=== PATIENT | male | born 1945 ===

== ENCOUNTER 2017-11-06 01:14 | Inpatient (IN) | payer OTHER, MEDICARE ==
[~2017-11-06] VITALS: Ht 167.6 cm; Wt 93.0 kg
[~2017-11-06 01:14] MED LIST: COQ10-VIT E 201 EACH PO; CRESTOR10 M1 PO; FLOMAX0.4 M1 PO; VALSARTAN320 M1 PO
--- NOTE | 2017-11-06 13:45 | Admission Core Measures ---
Acute Coronary Syndrome (CM) ACS Core Measures Acute Coronary Syndrome Diagnosis No Congestive Heart Failure (NEW) CHF Core Measures Congestive Heart Failure Diagnosis No Cerebrovascular Accident (NEW) CVA Core Measures CVA/TIA Diagnosis No Venous Thromboembolism VTE Core Cat (View Protocol) VTE Risk Factors Surgery No Mechanical VTE Prophylaxis d/t N/A MechProphylax Ordered No VTE Pharm Prophylaxis d/t NA PharmProphylax ordered Problem List As ranked by this Provider includes Assessment & Plan 1. Unilateral primary osteoarthritis, right knee HOME MEDS Home Med List Rosuvastatin Calcium (Crestor) 10 MG TABLET 10 MG PO DAILY CHOLESTEROL ( Reported) Tamsulosin HCl (Flomax) 0.4 MG CAP.ER.24H 1 TAB PO DAILY BLADDER (Reported) Ubidecarenone/Vitamin E Mixed (Mmo39-Evd E 200 MG-20 Unit Sfg) 200 MG-20 UNIT CAPSULE 1 TAB PO DAILY SUPPLEMENT (Reported) Valsartan 320 MG TABLET 1 TAB PO DAILY BLOOD PRESSURE (Reported)
[2017-11-06] MEDS ORDERED: ASPIRIN EC325 M2 PO (13:49)
[2017-11-06] MEDS ORDERED: MIRALAX17 G1 PO (13:50)
[2017-11-06] MEDS ORDERED: DILAUDID2 M1 PO (13:50)
[2017-11-06] MEDS ORDERED: MS CONTIN15 M3 PO (13:50)
[2017-11-06] MEDS ORDERED: COLACE100 M1 PO (13:50)
[2017-11-06] MEDS ORDERED: PRILOSEC OTC20 M1 PO (13:50)
--- NOTE | 2017-11-06 14:45 | Patient Discharge Instructions ---
Discharge Instructions General Discharge Information You were seen/treated for: Right knee pain related to unilateral primary osteoarthritis You had these procedures: Right total knee replacement Watch for these problems: Increasing pain despite the use of pain medication Increasing redness, warmth or swelling Drainage of any type from incision Inability to bear weight on operative leg Persistent nausea and vomiting Fever greater than 101.5 degrees Do not soak the wound: Yes Daily wet to dry dressings: No No bath, but you may shower: Yes Other wound care: Please keep wound clean and dry. No ointments or lotions of any type on or near incision at any time. No exceptions. Your dressing will be changed by your nurse on the second day after your surgery. Daily dry dressing changes are recommended each day thereafter. Do not soak your wound in a bath at any time until otherwise indicated by your surgeon. You may shower, please dry wound immediately after shower with a clean towel. Special Instructions: Aspirin: You are taking this medication to help prevent blood clot formation. Please take with food to protect your stomach lining. Please take as directed. Constipation: Pain medication can cause constipation. Dr. Cisneros has recommended that you take Colace and miralax each day. You may discontinue this medication if you develop loose stool or diarrhea. If you wish to continue this medication, it is available over the counter. If you are unable to move your bowels after several days, if you are unable to pass gas and are developing bloating, nausea, or vomiting as a result, please contact your doctor. Diet Continue normal diet: No Recommended Diet: Regular Activity Full Activity/No Limits: No Activity Self Limited: Yes Pounds, do NOT lift more than: 10 Activity Limited to: Weight bear as tolerated Acute Coronary Syndrome Inclusion Criteria At DC or during hospital stay patient has or had the following: ACS DIAGNOSIS No Discharge Core Measures Meds if any: Prescribed or Continued at Discharge Meds if any: NOT Prescribed or Continued at Discharge Congestive Heart Failure Inclusion Criteria At DC or during hospital stay patient has or had the following: CHF DIAGNOSIS No Discharge Core Measures Meds if any: Prescribed or Continued at Discharge Meds if any: NOT Prescribed or Continued at Discharge Cerebrovascular accident Inclusion Criteria At DC or during hospital stay patient has or had the following: CVA/TIA Diagnosis No Discharge Core Measures Meds if any: Prescribed or Continued at Discharge Meds if any: NOT Prescribed or Continued at Discharge Venous thromboembolism Inclusion Criteria VTE Diagnosis No VTE Type NONE VTE Confirmed by (Test) NONE Discharge Core Measures - Per Current guidelines, there needs to be overlap - treatment for the first 5 days of Warfarin therapy. - If discharged on Warfarin prior to 5 days of - overlap therapy, the patient will need to be - assessed for post discharge needs including - *Post discharge parental anticoagulation - *Warfarin and/or parental anticoagulation education - *Follow up date to check INR post discharge At least 5 days overlap therapy as Inpatient No Meds if any: Prescribed or Continued at Discharge Note: Overlap Therapy is Warfarin and Anticoagulant Meds if any: NOT Prescribed or Continued at Discharge
--- NOTE | 2017-11-06 14:47 | Surgical Discharge Summary ---
Visit Information Visit Dates Admission Date: 11/06/17 Discharge Date: 11/09/17 History of Present Illness Chief Complaint: Right knee pain related to unilateral primary osteoarthritis Medical History Isolation History: Standard Surgical History Pertinent Surgical History: none Review of Systems: none Hospital Course Course Attending Physician: Willy Cisneros MD Primary Care Physician: Niko SALCIDO,[facility] Course: Patient was admitted to the hospital for an elective total joint replacement. The procedure was tolerated well and patient was transferred to a general surgical floor. Diet was advanced and tolerated, and the patient voided spontaneously. The patient was evaluated and treated by physical therapy. At the time of hospital discharge, the vital signs were stable, neurovascular status was intact, and pain was controlled with the use of oral pain medications. Allergies: Coded Allergies: No Known Drug Allergies (NKDA 11/06/17) PER ANESTHESIA PAIN MANAGEMENT ORDER SHEET. - 11/06/17 Disposition Summary Disposition Principal Diagnosis: Right knee unilateral primary osteoarthritis Additional Diagnosis: None Discharge Disposition: home health services Discharge Instructions General Discharge Information Code Status: Full Code Patient's Diet: Regular, advance as tolerated Patient's Activity: WBAT Follow-Up Instructions/Appts: Follow up with Dr. Cisneros in 6 weeks from date of surgery Medications at Discharge Discharge Medications: Continue taking these medications: Ubidecarenone/Vitamin E Mixed (Jcf88-Vhr E 200 MG-20 Unit Sfg) 200 MG-20 UNIT CAPSULE 1 Tablet ORAL DAILY Comments: NOT GIVEN Rosuvastatin Calcium (Crestor) 10 MG TABLET 10 Milligram ORAL DAILY Comments: NOT GIVEN Tamsulosin HCl (Flomax) 0.4 MG CAP.ER.24H 1 Tablet ORAL DAILY Comments: Last Taken: 11/09/17 Time: 937AM Valsartan (Valsartan) 320 MG TABLET 1 Tablet ORAL DAILY Comments: LOSARTAN 50MG GIVEN SUBSTITUTION Last Taken: 11/09/17 Time: 937 Start taking the following new medications: Aspirin (Ecotrin*) 325 MG TABLET.DR 1 Tablet ORAL TWICE DAILY Qty = 60 No Refills Comments: Last Taken: 11/09/17 Time: 937AM Docusate Sodium (Colace) 100 MG CAPSULE 1 Capsule ORAL TWICE DAILY Qty = 14 No Refills Instructions: DISCONTINUE USE IF YOU DEVELOP LOOSE STOOL OR DIARRHEA Comments: Last Taken: 11/08/17 Time: 840AM Hydromorphone HCl (Dilaudid) 2 MG TABLET 1-2 Tablet ORAL EVERY 4-6 HOURS NEEDED as needed for PAIN Qty = 36 No Refills Comments: Last Taken: 11/09/17 Time: 935AM Polyethylene Glycol 3350 (Miralax) 17 GRAM POWD.PACK 1 Packet ORAL DAILY Qty = 7 No Refills Instructions: dissolve in water, DISCONTINUE USE IF YOU DEVELOP LOOSE STOOL OR DIARRHEA Comments: Last Taken: 11/08/17 Time: 840AM Morphine Sulfate (Ms Contin) 15 MG TABLET.ER 1 Tablet ORAL TWICE DAILY Qty = 6 No Refills Comments: NOT GIVEN Omeprazole Magnesium (Prilosec Otc) 20 MG TABLET.DR 1 Tablet ORAL DAILY Qty = 30 No Refills Comments: Last Taken: 11/09/17 Time: 544AM
--- NOTE | 2017-11-06 14:57 | Operative Report ---
Operative/Inv Procedure Report Surgery Date: 11/06/17 Name of Procedure: 1. Right total knee replacement 2. Left knee cortisone injection Pre-Operative Diagnosis: Bilateral primary knee DJD Post-Operative Diagnosis: Same Estimated Blood Loss: 50ml to 100ml Surgeon/Veterinary Pharmacologist: Amelia SALCIDO,Willy GARCIA Anesthesia: block Operative/Procedure Note Note: Description of Procedure: The patient was taken to the operating room and positively identified. After induction of spinal anesthesia and administration of appropriate pre-operative antibiotics, the patient was positioned supine on the operating room table and all bony prominences were well padded. The left knee was prepped sterilely and injected with a mixture of 2 mL of Depo- Medrol and 8 mL of half percent Marcaine. A Band-Aid was placed over the injection site. Attention was then turned to the right lower extremity. A well-padded pneumatic tourniquet was placed on the right upper thigh. After performing a surgical timeout, the right lower extremity was prepped and draped in the usual sterile fashion. After exsanguination with Esmarch the tourniquet was inflated to 250mm of mercury. A standard medial parapatellar approach was made to the knee. This was carried down through skin and subcutaneous tissue to the level of the fascia. Meticulous hemostasis was maintained with Bovie electrocautery. The extensor mechanism and patellar retinaculum were opened sharply and the patella was everted. The infrapatellar fat was resected in order to improve exposure. Osteophytes were trimmed from the patella and femoral condyles and the patella was re-everted and tucked laterally. A medial release was performed and the cruciate ligaments were resected. The tibia was then subluxed anteriorly. Utilizing the appropriate extra-medullary guide, the proximal tibia was trimmed perpendicular to the long axis of the tibial shaft. Attention was then turned to the femur. After opening the medullary canal, the distal femoral cut was made in 6 degrees of valgus utilizing the appropriate intra-medullary guide. The extension gap was checked and found to be appropriate. The femur was then sized and the remainder of the femoral cuts were made with a size 5 4-in-1 femoral cutting guide. The flexion gap was checked and found to be symmetric and appropriate. The knee was then trialed with a size 5 femoral component, a size 5 tibial component and a size 11 mm polyethylene insert. The patella was trimmed to accept an A 35 patella. This yielded excellent range of motion, stability and patellar tracking. All trial components were removed and the knee was copiously irrigated with sterile saline. All components were cemented into place with Dorys Simplex cement. All the components were of the [employer] Triathlon knee system of the above stated sizes. The knee was again irrigated after cementation. The extensor mechanism and patellar retinaculum were repaired using interrupted #1 vicryl suture. The skin was re-approximated with 2-0 vicryl and closed with clemencia. A sterile dressing was applied, the tourniquet was deflated, the patient was awakened and taken to the recovery room in satisfactory condition.
--- NOTE | 2017-11-06 17:12 | PN- Orthopedic ---
Subjective Subjective: POC S/P RIGTH TKA RESTING COMFORTABLY, NO COMPLAINTS AT THIS TIME DENEIS CP, SOB, NO N+V Objective Vital Signs and I&Os vss Physical Exam: CV: RRR lungs: clear abd: soft, +bs ext: drsg dry distal cms inatct onq inplace Assessment/Plan Assessment/Plan ortho stable plan oob wbat with pt/staff asa for dvt prophylaxis titrate pain meds advance diet as tolerated Core Measures Venous Thromboembolism VTE Risk Factors Surgery No Mechanical VTE Prophylaxis d/t N/A MechProphylax Ordered No VTE Pharm Prophylaxis d/t NA PharmProphylax ordered
[2017-11-06 22:39] VITALS: BP 150/70
[2017-11-07 01:24] VITALS: BP 154/90
[2017-11-07 03:12] VITALS: BP 150/80
[2017-11-07 07:08] VITALS: BP 156/86
--- NOTE | 2017-11-07 07:55 | PN- Orthopedic ---
Subjective Subjective: pod#1 s/p right tka no major issues overnight denies cp, sob, no n+v with diet Objective Vital Signs and I&Os Vital Signs Date Time Temp Pulse Resp B/P B/P Pulse O2 O2 Flow FiO2 Mean Ox Delivery Rate 11/07 707 98.7 80 20 156/86 95 Room Air 11/07 0312 99.2 77 20 150/80 93 Room Air 11/07 0124 99.2 75 20 154/90 93 Room Air 11/06 2239 98.8 76 18 150/70 93 Room Air Intake & Output 11/07 0700 11/07 0000 11/06 1600 11/06 0000 11/05 1600 Intake Total 1125 Output Total 700 Balance 425 Intake, IV 725 Intake, Oral 400 Output, Urine 700 Patient 205 lb Weight Weight Reported by Patient Measurement Method Physical Exam: cv: rrr lungs: clear abd: soft, +bs ext: drsg dry distal cms inatct onq in place Assessment/Plan Assessment/Plan ortho stable plan oob with pt today asa for dvt prophylaxis titrate pain meds home d/c planning Core Measures Venous Thromboembolism VTE Risk Factors Surgery No Mechanical VTE Prophylaxis d/t N/A MechProphylax Ordered No VTE Pharm Prophylaxis d/t NA PharmProphylax ordered
[2017-11-07 08:56] LABS: ABSOLUTE BASOPHIL COUNT 0 /CUMM (0.0-0.2); ABSOLUTE EOSINOPHIL COUNT 0.2 /CUMM (0.0-0.7); ABSOLUTE GRANULOCYTE CT 12.5 /CUMM (1.4-6.5); ABSOLUTE LYMPH COUNT 1.3 /CUMM (1.2-3.4); ABSOLUTE MONOCYTE COUNT 1.4 /CUMM (0.10-0.60); BASOPHIL % 0.2 % (0.0-2.0); EOSINOPHIL % 1.2 % (0-5); GRANULOCYTE % 81.1 % (42.2-75.2); HEMATOCRIT 41.4 % (42-52); MEAN CORPUSCULAR HGB CONC 34.6 G/DL (33.0-37.0); MEAN CORPUSCULAR VOLUME 92.6 FL (80.0-94.0); MEAN PLATELET VOLUME 8.9 FL (7.4-10.4); PLATELET COUNT 227 /CUMM (130-400); RBC DISTRIBUTION WIDTH 13.2 % (11.5-14.5); RED BLOOD CELL CT 4.47 /CUMM (4.70-6.10); WHITE BLOOD CELL COUNT 15.4 /CUMM (4.8-10.8)
[2017-11-07 11:03] VITALS: BP 122/60
[2017-11-07 14:05] VITALS: BP 128/70
[2017-11-07 22:16] VITALS: BP 152/80
[2017-11-08 06:04] VITALS: BP 130/80
--- NOTE | 2017-11-08 07:05 | PN- Orthopedic ---
Subjective Subjective: POD#2 S/P RIGHT TKA NO MAJOR ISSUES OVERNIGHT DENIES CP, SOB, NO N+V WITH DIET AMBULATING WITH PT VOIDING ITHOUT DIFFICULTY Objective Vital Signs and I&Os Vital Signs Date Time Temp Pulse Resp B/P B/P Pulse O2 O2 Flow FiO2 Mean Ox Delivery Rate 11/08 0604 99.0 79 20 130/80 94 Room Air 11/07 2216 98.6 82 20 152/80 96 11/07 1405 97.9 76 20 128/70 94 Room Air 11/07 1103 98.1 74 18 122/60 95 Room Air 11/07 08 80 156/86 11/07 08 80 156/86 11/07 0708 98.7 80 20 156/86 95 Room Air Intake & Output 11/08 0811/08 0000 11/07 1600 11/07 0811/07 0000 11/06 1600 Intake Total 480 360 103 165 8120 Output Total 100 350 700 Balance 480 260 960 150 425 Intake, IV 200 725 Intake, Oral 480 360 960 300 400 Number 0 Bowel Movements Output, Urine 100 350 700 Patient 205 lb Weight Weight Reported by Patient Measurement Method Physical Exam: CV: RRR LUNGS; CLEAR ABD: SOFT, +BS EXT: DRSG CHNAGED, WOUND C/D/I NO CALF TENDERNESS BILAT DISTAL CMS INTACT Assessment/Plan Assessment/Plan ORTHO STABLE PLAN CONT OOB WITH PT/STAIRS TITRATE PAIN MEDS ASA FOR DVT PROPHYLAXIS BOWEL REGIME HOME D/C PLANNING Core Measures Venous Thromboembolism VTE Risk Factors Surgery No Mechanical VTE Prophylaxis d/t N/A MechProphylax Ordered No VTE Pharm Prophylaxis d/t NA PharmProphylax ordered
[2017-11-08 14:07] VITALS: BP 130/62
[2017-11-08 21:23] VITALS: BP 126/70
[2017-11-09 06:46] VITALS: BP 140/80
--- NOTE | 2017-11-09 07:38 | PN- Orthopedic ---
Subjective Subjective: Pain is well controlled, no acute events overnight, no fever no flulike illness no chest pain. He is anticipating going home today. Objective Vital Signs and I&Os Vital Signs Date Time Temp Pulse Resp B/P B/P Pulse O2 O2 Flow FiO2 Mean Ox Delivery Rate 11/09 0646 98.5 75 20 140/80 95 Room Air 11/08 2123 98.8 78 20 126/70 95 11/08 1407 99.0 82 20 130/62 95 Room Air 11/08 0839 79 130/80 11/08 0839 79 130/80 Intake & Output 11/09 0811/09 0000 11/08 1600 11/08 0800 11/08 0000 11/07 1600 Intake Total 360 360 960 480 360 960 Output Total 100 Balance 360 360 960 480 260 960 Intake, Oral 360 360 960 480 360 960 Number 1 0 Bowel Movements Output, Urine 100 Physical Exam: Well-developed well-nourished no apparent distress. HEENT: Atraumatic, extraocular motion intact Neck: Supple, no lymphadenopathy Respiratory: No respiratory distress Extremities: No edema Right lower extremity dressing in place, Incision line is clean dry and intact No signs of infection. Mild joint effusion Range of motion is 0-45. alps [address] place Neurovascularly intact distally Bilateral calves are supple, nontender. Neuro: Alert and oriented x3 Psych: Mood affect normal, normal memory normal judgment. Skin: Warm and dry, no rash on exposed skin Results Last 48 Hours of Labs: Laboratory Tests 11/07 0752 Chemistry Sodium (137 - 145 mmol/L) 138 Potassium (3.5 - 5.1 mmol/L) 4.2 Chloride (98 - 107 mmol/L) 100 Carbon Dioxide (22 - 30 mmol/L) 23 Anion Gap (5 - 16) 14 BUN (9 - 20 mg/dL) 16 Creatinine (0.7 - 1.2 mg/dL) 0.9 Estimated GFR (>60 ml/min) > 60 BUN/Creatinine Ratio (7 - 25 %) 17.8 Hematology CBC w Diff NO MAN DIFF REQ WBC (4.8 - 10.8 /CUMM) 15.4 H RBC (4.70 - 6.10 /CUMM) 4.47 L Hgb (14.0 - 18.0 G/DL) 14.3 Hct (42 - 52 %) 41.4 L MCV (80.0 - 94.0 FL) 92.6 MCH (27.0 - 31.0 PG) 32.0 H RDW (11.5 - 14.5 %) 13.2 Plt Count (130 - 400 /CUMM) 227 MPV (7.4 - 10.4 FL) 8.9 Gran % (42.2 - 75.2 %) 81.1 H Lymphocytes % (20.5 - 51.1 %) 8.4 L Monocytes % (1.7 - 9.3 %) 9.1 Eosinophils % (0 - 5 %) 1.2 Basophils % (0.0 - 2.0 %) 0.2 Absolute Granulocytes (1.4 - 6.5 /CUMM) 12.5 H Absolute Lymphocytes (1.2 - 3.4 /CUMM) 1.3 Absolute Monocytes (0.10 - 0.60 /CUMM) 1.4 H Absolute Eosinophils (0.0 - 0.7 /CUMM) 0.2 Absolute Basophils (0.0 - 0.2 /CUMM) 0 PUBS MCHC (33.0 - 37.0 G/DL) 34.6 Assessment/Plan Assessment/Plan Postop day #3 status post right total knee arthroplasty. Patient stable for discharge home today Pain medication as needed Home with [facility] services Aspirin for DVT prophylaxis Patient counseled on working on range of motion to avoid stiffness, he understands Core Measures Venous Thromboembolism VTE Risk Factors Surgery No Mechanical VTE Prophylaxis d/t N/A MechProphylax Ordered No VTE Pharm Prophylaxis d/t NA PharmProphylax ordered
== END 2017-11-09 10:15 | disposition home health service (06) | DRG 470 ==
LOC: SDA 01:14 → ENRESERV 16:50 → ENTRNSPT 18:06 → CMPTRNSPT 18:34 → 2NA 18:43 → ENPENDDIS 11-09 07:48 → ENTRNSPT 11-09 09:55 → EDTRNSPTSTS 11-09 10:03 → EDTRNSPT 11-09 10:03 → 2NA 11-09 10:15 → CMPTRNSPT 11-09 10:36
PROVIDERS: Nurse Practitioner
PROC: 0SRC0J9 Replacement of Right Knee Joint with Synthetic Substitute, Cemented, Open Approach (ICD-10-PCS; principal; 2017-11-06)
PROC: 3E0U33Z Introduction of Anti-inflammatory into Joints, Percutaneous Approach (ICD-10-PCS; 2017-11-06)
DX: M17.0 Bilateral primary osteoarthritis of knee (principal); E78.00 Pure hypercholesterolemia, unspecified; I12.9 Hypertensive chronic kidney disease with stage 1 through stage 4 chronic kidney disease, or unspecified chronic kidney disease; N18.9 Chronic kidney disease, unspecified
CPT/HCPCS: 2NASP; 36415; 82436; 88305; 97110-GO; 97116-GO; 97161-GP; 97530-GO; C1713; J0131; J0690; J1030; J1885; J2550; J2795; J7042